=== PATIENT | female | born 1945 | race Caucasian/White ===

== ENCOUNTER 2023-01-01 10:15 | Outpatient (AMB) | payer MEDICARE, SELFPAY ==
--- NOTE | 2023-01-01 10:31 | HO.NEPHOV ---
HPI HPI Comments History of Present Illness Details I had the privilege of seeing Nelsy in follow-up. She has had history of recurrent UTI and has seen a urologist. She had undergone investigations which resulted in no further UTIs. She has the remote history for peripheral arterial disease. Her serum creatinine had gone up to 1.4 in the past when she was taking Bactrim which has resolved to her baseline now. Blood pressure has been at goal. She does not have any chest pain, shortness of breath, pedal edema, nausea, vomiting or diarrhea. She denies dizziness or orthostatic symptoms. She is not taking any nonsteroidal anti-inflammatory medications. There were no new active complaints at the time of this office visit. [facility] Medical History (Updated 01/01/23 @ 11:05 by Moy Tejada MD) Stomach cancer Other malignant neoplasm without specification of site Essential hypertension Surgical History (Updated 01/01/23 @ 10:37 by Serina Ervin MA) History of cholecystectomy H/O hernia repair Social History (Updated 01/01/23 @ 10:36 by Serina Ervin MA) Alcohol intake: current Alcohol type: wine Patient Tobacco Use Status: Never used Tobacco Vital Signs 01/01/23 10:32 Height 5 ft 4.5 in Weight 152 lb 2 oz BMI 25.7 BP 126/68 Blood Pressure Location Lt brachial Position Sitting Pulse 66 Pulse Source Pulse Oximeter Physical Exam Vital Signs: Last Vital Signs Pulse 66 01/01/23 10:32 BP 126/68 01/01/23 10:32 BMI result Body Mass Index 25.7 Const General: comfortable and no acute distress Orientation/consciousness: patient oriented x3 HEENT Head: Yes normocephalic Mouth: Normal oral and palatal mucosa present Eyes EOM: EOMs intact bilaterally Neck Neck: Yes supple Resp Auscultation: clear to auscultation bilaterally Cardio Jugular venous distension: no JVD Rate: regular rate Heart sounds: Murmur heart sound present GI Palpation (GI): Soft to palpation Auscultation: normal bowel sounds General: Yes no CVA tenderness Back/Spine/Pelvis Back: no CVA tenderness Skin General skin exam: no rashes or lesions noted Neuro General: patient oriented x3 and moves all extremities Extrem General: Yes no pedal edema Assessment & Plan Assessment & Plan (1) Essential hypertension: Code(s): I10 - Essential (primary) hypertension (2) CKD (chronic kidney disease) stage 3, GFR 30-59 ml/min: Code(s): N18.30 - Chronic kidney disease, stage 3 unspecified Qualifiers: Chronic kidney disease stage 3 subtype: stage 3a (GFR 45-59) Qualified Code(s): N18.31 - Chronic kidney disease, stage 3a Karen Whittington has some mild CKD most likely from vascular disease given her history of peripheral arterial disease and hypertension. Her serum creatinine had been stable and is close to baseline. Her blood pressure currently is at goal. She is on Atenolol, amlodipine as well as losartan. With time, I intend to optimize her blood pressure medications to avoid polypharmacy. She is on lipid-lowering agents. She should remain well hydrated. She should avoid nonsteroidal anti-inflammatory medications. She was encouraged to monitor her blood pressure at home. I have agreed to see her in follow-up for continued care. No medications were changed during this visit. All questions were answered. Time spent a retrieving data, documentation and patient counter 23 minutes. Orders: Orders Blood Urea Nitrogen 01/01/23 I10 - Essential (primary) hypertension, N18.30 - Chronic kidney disease, stage 3 unspecified Calcium 01/01/23 I10 - Essential (primary) hypertension, N18.30 - Chronic kidney disease, stage 3 unspecified UA w Microscopic 01/01/23 I10 - Essential (primary) hypertension, N18.30 - Chronic kidney disease, stage 3 unspecified Total Protein Urine Random 01/01/23 I10 - Essential (primary) hypertension, N18.30 - Chronic kidney disease, stage 3 unspecified Electrolytes 01/01/23 I10 - Essential (primary) hypertension, N18.30 - Chronic kidney disease, stage 3 unspecified Creatinine 01/01/23 I10 - Essential (primary) hypertension, N18.30 - Chronic kidney disease, stage 3 unspecified Coding Level of Care Code Est Pt Level 3 (00052) Diagnoses Essential hypertension I10 Stage 3a chronic kidney disease N18.31 Chronic kidney disease stage 3 subtype: stage 3a (GFR 45-59)
[2023-01-01 10:32] VITALS: BP 126/68; PULSE 66; BMI 25.7
== END 2023-01-01 11:10 | disposition home or self-care (01) ==
PROVIDERS: PCP Internal Medicine; Visit Provider Internal Medicine Nephrology
DX: I12.9 Hypertensive chronic kidney disease with stage 1 through stage 4 chronic kidney disease, or unspecified chronic kidney disease (principal); N18.31 Chronic kidney disease, stage 3a
CPT/HCPCS: 99213

== ENCOUNTER → 2023-01-01 10:15 | Outpatient (BNVA) | payer MEDICARE, SELFPAY | PROVIDERS: PCP Internal Medicine; Visit Provider Internal Medicine Nephrology | DX: I12.9 Hypertensive chronic kidney disease with stage 1 through stage 4 chronic kidney disease, or unspecified chronic kidney disease (principal); N18.31 Chronic kidney disease, stage 3a; I73.9 Peripheral vascular disease, unspecified; Z79.899 Other long term (current) drug therapy | CPT/HCPCS: 99212 ==

== ENCOUNTER 2023-04-05 11:01 | Outpatient (AMB) | payer MEDICARE, SELFPAY ==
--- NOTE | 2023-04-05 11:37 | HO.NEPHOV_ITS ---
HPI HPI Comments History of Present Illness Details I had the privilege of seeing Nelsy in follow-up. She has history of recurrent UTI and has seen a urologist. She had undergone investigations which resulted in no further UTIs. She has the remote history for peripheral arterial disease. Her serum creatinine had gone up to 1.4 in the past when she was taking Bactrim which has resolved to her baseline now. Her blood pressure has been at goal. She does not have any chest pain, shortness of breath, pedal edema, nausea, vomiting or diarrhea. She denies dizziness or orthostatic symptoms. She is not taking any nonsteroidal anti-inflammatory medications. There were no new active complaints at the time of this office visit. [facility] Medical History (Updated 01/01/23 @ 11:05 by Moy Tejada MD) Stomach cancer Other malignant neoplasm without specification of site Essential hypertension Surgical History History of cholecystectomy H/O hernia repair Social History Alcohol intake: current Alcohol type: wine Patient Tobacco Use Status: Never used Tobacco Vital Signs 04/05/23 11:38 Height 5 ft 4.5 in Weight 154 lb 6 oz BMI 26.1 BP 134/68 Blood Pressure Location Lt brachial Position Sitting Pulse 59 Pulse Source Pulse Oximeter Pulse Oximetry (%) 97 Oxygen Delivery Method Room Air Physical Exam Vital Signs: Last Vital Signs Pulse 59 04/05/23 11:38 BP 134/68 04/05/23 11:38 Pulse Ox 97 04/05/23 11:38 Oxygen Delivery Method Room Air 04/05/23 11:38 BMI result Body Mass Index 26.1 Const General: comfortable and no acute distress Orientation/consciousness: patient oriented x3 HEENT Head: Yes normocephalic Mouth: Normal oral and palatal mucosa present Eyes EOM: EOMs intact bilaterally Neck Neck: Yes supple Resp Auscultation: clear to auscultation bilaterally Cardio Jugular venous distension: no JVD Rate: regular rate GI Palpation (GI): Soft to palpation Auscultation: normal bowel sounds General: Yes no CVA tenderness Back/Spine/Pelvis Back: no CVA tenderness Skin General skin exam: no rashes or lesions noted Neuro General: patient oriented x3 and moves all extremities Extrem General: Yes no pedal edema Assessment & Plan Assessment & Plan (1) CKD (chronic kidney disease) stage 3, GFR 30-59 ml/min: Code(s): N18.30 - Chronic kidney disease, stage 3 unspecified Qualifiers: Chronic kidney disease stage 3 subtype: stage 3a (GFR 45-59) Qualified Code(s): N18.31 - Chronic kidney disease, stage 3a (2) Essential hypertension: Code(s): I10 - Essential (primary) hypertension Plan Nelsy has some mild CKD most likely from vascular disease given her history of peripheral arterial disease and hypertension. Her serum creatinine had been stable and is close to baseline. Her blood pressure currently is at goal. She is on Atenolol, amlodipine as well as losartan. With time, I intend to optimize her blood pressure medications to avoid polypharmacy. She is on lipid- lowering agents. She should remain well hydrated. She should avoid nonsteroidal anti-inflammatory medications. She was encouraged to monitor her blood pressure at home. I have agreed to see her in follow-up for continued care. No medications were changed during this visit. All questions were answered. Orders: Orders Creatinine Today I10 - Essential (primary) hypertension, N18.30 - Chronic kidney disease, stage 3 unspecified Electrolytes Today I10 - Essential (primary) hypertension, N18.30 - Chronic kidney disease, stage 3 unspecified Blood Urea Nitrogen Today I10 - Essential (primary) hypertension, N18.30 - Chronic kidney disease, stage 3 unspecified Coding Level of Care Code Est Pt Level 3 (40058) Diagnoses Stage 3a chronic kidney disease N18.31 Chronic kidney disease stage 3 subtype: stage 3a (GFR 45-59) Essential hypertension I10 Results Reviewed Nephrology Results: No Data to Display
[2023-04-05 11:38] VITALS: BP 134/68; PULSE 59; O2SAT 97; BMI 26.1
== END 2023-04-05 11:55 | disposition home or self-care (01) ==
LOC: HO.HKA 11:01
PROVIDERS: PCP Internal Medicine; Visit Provider Internal Medicine Nephrology
DX: N18.31 Chronic kidney disease, stage 3a (principal); I10 Essential (primary) hypertension
CPT/HCPCS: 99213

== ENCOUNTER → 2023-04-05 11:01 | Outpatient (BNVA) | payer MEDICARE, SELFPAY | PROVIDERS: PCP Internal Medicine; Visit Provider Internal Medicine Nephrology | DX: I12.9 Hypertensive chronic kidney disease with stage 1 through stage 4 chronic kidney disease, or unspecified chronic kidney disease (principal); N18.31 Chronic kidney disease, stage 3a | CPT/HCPCS: 99212 ==

== ENCOUNTER 2023-10-09 11:26 | Outpatient (AMB) | payer MEDICARE, SELFPAY ==
[2023-10-09 11:29] VITALS: BP 120/62; PULSE 84; O2SAT 97; BMI 25.7
--- NOTE | 2023-10-09 11:29 | HO.NEPHOV ---
Vital Signs 10/09/23 11:29 Height 5 ft 4.5 in Weight 152 lb BMI 25.7 BP 120/62 Blood Pressure Location Lt brachial Position Sitting Pulse 84 Pulse Source Pulse Oximeter Pulse Oximetry (%) 97 Oxygen Delivery Method Room Air Intake Visit Reasons: Aug follow up / Conf Manufacturing Sr Engineer Required: No Accompanied by: Self / Same As Patient Allergies adhesive tape Allergy (Verified 10/09/23 11:31) Unknown Penicillins Allergy (Verified 10/09/23 11:31) Unknown HPI Comments Details: I had the privilege of seeing Nelsy in follow-up. She has history of recurrent UTI and has seen a urologist. She had undergone investigations which resulted in no further UTIs. She has the remote history for peripheral arterial disease. Her serum creatinine had gone up to 1.4 in the past when she was taking Bactrim which has resolved to her baseline now. Her blood pressure has been at goal. She does not have any chest pain, shortness of breath, pedal edema, nausea, vomiting or diarrhea. She denies dizziness or orthostatic symptoms. She is not taking any nonsteroidal anti-inflammatory medications. There were no new active complaints at the time of this office visit. [facility] Medical History (Updated 01/01/23 @ 11:05 by Moy Tejada MD) Stomach cancer Other malignant neoplasm without specification of site Essential hypertension Surgical History History of cholecystectomy H/O hernia repair Social History Alcohol intake: current Alcohol type: wine Patient Tobacco Use Status: Never used Tobacco Review of Systems Const All systems reviewed & are unremarkable except as noted in HPI and below Physical Exam Vital Signs: Last Vital Signs Pulse 84 10/09/23 11:29 BP 120/62 10/09/23 11:29 Pulse Ox 97 10/09/23 11:29 Oxygen Delivery Method Room Air 10/09/23 11:29 BMI result Body Mass Index 25.7 Const General: comfortable and no acute distress Orientation/consciousness: patient oriented x3 HEENT Head: Yes normocephalic Mouth: Normal oral and palatal mucosa present Eyes EOM: EOMs intact bilaterally Neck Neck: Yes supple Resp Auscultation: clear to auscultation bilaterally Cardio Jugular venous distension: no JVD Rate: regular rate GI Palpation (GI): Soft to palpation Auscultation: normal bowel sounds General: Yes no CVA tenderness Back/Spine/Pelvis Back: no CVA tenderness Skin General skin exam: no rashes or lesions noted Neuro General: patient oriented x3 and moves all extremities Extrem General: Yes no pedal edema Results Reviewed Nephrology Results: No Data to Display Assessment & Plan Assessment & Plan (1) CKD (chronic kidney disease) stage 3, GFR 30-59 ml/min: Code(s): N18.30 - Chronic kidney disease, stage 3 unspecified Category: Medical Qualifiers: Chronic kidney disease stage 3 subtype: stage 3a (GFR 45-59) Qualified Code(s): N18.31 - Chronic kidney disease, stage 3a (2) Essential hypertension: Code(s): I10 - Essential (primary) hypertension Category: Medical Plan Nelsy has some mild CKD most likely from vascular disease given her history of peripheral arterial disease and hypertension. Her serum creatinine had been stable and is close to baseline. Her blood pressure currently is at goal. She is on Atenolol, amlodipine as well as losartan. With time, I intend to optimize her blood pressure medications to avoid polypharmacy. She is on lipid-lowering agents. She should remain well hydrated. She should avoid nonsteroidal anti-inflammatory medications. She was encouraged to monitor her blood pressure at home. I have agreed to see her in follow-up for continued care. No medications were changed during this visit. All questions were answered. Orders: Orders Creatinine Today I10 - Essential (primary) hypertension, N18.31 - Chronic kidney disease, stage 3a Electrolytes Today I10 - Essential (primary) hypertension, N18.31 - Chronic kidney disease, stage 3a Calcium Today I10 - Essential (primary) hypertension, N18.31 - Chronic kidney disease, stage 3a Blood Urea Nitrogen Today I10 - Essential (primary) hypertension, N18.31 - Chronic kidney disease, stage 3a Coding Level of Care Code Est Pt Level 4 (04113) Diagnoses Stage 3a chronic kidney disease N18.31 Chronic kidney disease stage 3 subtype: stage 3a (GFR 45-59) Essential hypertension I10
== END 2023-10-09 11:48 | disposition home or self-care (01) ==
PROVIDERS: PCP Internal Medicine; Visit Provider Internal Medicine Nephrology
DX: N18.31 Chronic kidney disease, stage 3a (principal); I10 Essential (primary) hypertension
CPT/HCPCS: 99214

== ENCOUNTER → 2023-10-09 11:26 | Outpatient (BNVA) | payer MEDICARE, SELFPAY | PROVIDERS: PCP Internal Medicine; Visit Provider Internal Medicine Nephrology | DX: I12.9 Hypertensive chronic kidney disease with stage 1 through stage 4 chronic kidney disease, or unspecified chronic kidney disease (principal); N18.31 Chronic kidney disease, stage 3a | CPT/HCPCS: 99212 ==

== ENCOUNTER 2024-04-08 10:54 | Outpatient (AMB) | payer MEDICARE, SELFPAY ==
--- NOTE | 2024-04-08 11:26 | HO.NEPHOV_ITS ---
Vital Signs 04/08/24 11:28 Height 5 ft 4.5 in Weight 147 lb 4 oz BMI 24.9 BP 122/62 Blood Pressure Location Lt brachial Position Sitting Pulse 69 Pulse Source Pulse Oximeter Pulse Oximetry (%) 99 Oxygen Delivery Method Room Air Intake Visit Reasons: 6 mon follow up/ Conf Patient Transition Specialist Required: No Accompanied by: Self / Same As Patient Allergies adhesive tape Allergy (Verified 04/08/24 11:27) Unknown Penicillins Allergy (Verified 04/08/24 11:27) Unknown HPI Comments Details: I had the privilege of seeing Nelsy in follow-up. She has history of recurrent UTI and has seen a urologist. She had undergone investigations which resulted in no further UTIs. She has the remote history for peripheral arterial disease. Her blood pressure has been at goal. She does not have any chest pain, shortness of breath, pedal edema, nausea, vomiting or diarrhea. She denies dizziness or orthostatic symptoms. She is not taking any nonsteroidal anti- inflammatory medications. There were no new active complaints at the time of this office visit. [facility] Medical History (Updated 01/01/23 @ 11:05 by Moy Tejada MD) Stomach cancer Other malignant neoplasm without specification of site Essential hypertension Surgical History History of cholecystectomy H/O hernia repair Social History Alcohol intake: current Alcohol type: wine Patient Tobacco Use Status: Never used Tobacco Review of Systems Const All systems reviewed & are unremarkable except as noted in HPI and below Physical Exam Vital Signs: Last Vital Signs Pulse 69 04/08/24 11:28 BP 122/62 04/08/24 11:28 Pulse Ox 99 04/08/24 11:28 Oxygen Delivery Method Room Air 04/08/24 11:28 BMI result Body Mass Index 24.9 Const General: comfortable and no acute distress Orientation/consciousness: patient oriented x3 HEENT Head: Yes normocephalic Mouth: Normal oral and palatal mucosa present Eyes EOM: EOMs intact bilaterally Neck Neck: Yes supple Resp Auscultation: clear to auscultation bilaterally Cardio Jugular venous distension: no JVD Rate: regular rate GI Palpation (GI): Soft to palpation Auscultation: normal bowel sounds General: Yes no CVA tenderness Back/Spine/Pelvis Back: no CVA tenderness Skin General skin exam: no rashes or lesions noted Neuro General: patient oriented x3 and moves all extremities Extrem General: Yes no pedal edema Results Reviewed Nephrology Results: No Data to Display Assessment & Plan Assessment & Plan (1) CKD (chronic kidney disease) stage 3, GFR 30-59 ml/min: Code(s): N18.30 - Chronic kidney disease, stage 3 unspecified Category: Medical Qualifiers: Chronic kidney disease stage 3 subtype: stage 3a (GFR 45-59) Qualified Code(s): N18.31 - Chronic kidney disease, stage 3a (2) Essential hypertension: Code(s): I10 - Essential (primary) hypertension Category: Medical Plan Nelsy has some mild CKD most likely from vascular disease given her history of peripheral arterial disease and hypertension. Her serum creatinine had been stable and is close to baseline. Her blood pressure currently is at goal. She is on Atenolol, amlodipine as well as losartan. She is on lipid-lowering agents. She should remain well hydrated. She should avoid nonsteroidal anti- inflammatory medications. She was encouraged to monitor her blood pressure at home. I have agreed to see her in follow-up for continued care. No medications were changed during this visit. All questions were answered. Orders: Orders Creatinine 6 Months I10 - Essential (primary) hypertension, N18.31 - Chronic kidney disease, stage 3a Blood Urea Nitrogen 6 Months I10 - Essential (primary) hypertension, N18.31 - Chronic kidney disease, stage 3a Electrolytes 6 Months I10 - Essential (primary) hypertension, N18.31 - Chronic kidney disease, stage 3a Coding Level of Care Code Est Pt Level 4 (14029) Diagnoses Stage 3a chronic kidney disease N18.31 Chronic kidney disease stage 3 subtype: stage 3a (GFR 45-59) Essential hypertension I10
[2024-04-08 11:28] VITALS: BP 122/62; PULSE 69; O2SAT 99; BMI 24.9
--- OUTSIDE RECORDS SUMMARY | 2024-04-08 12:14 | XMS_ITS | Clinical Summary ---
Author Organization [facility] Address [address] [place] [address] Phone Care Team Providers Care Gas Welding Equipment Mechanic Name Role Phone Jones Alamo MD Primary Care Provider Allergies Active Allergy Reactions Criticality Noted Date Comments Adhesive Tape Other (see comments) 12/07/2021 Penicillins Other (see comments) 03/22/2018 Medications atenolol (TENORMIN) 25 MG tablet Take 25 mg by mouth 1 (one) time each day Active clonazePAM (KlonoPIN) 0.5 MG tablet Take 0.5 mg by mouth 2 (two) times a day if needed Active levothyroxine (SYNTHROID, LEVOTHROID) 88 MCG tablet Take 88 mcg by mouth 1 (one) time each day Active clopidogrel (PLAVIX) 75 MG tablet Take 1 tablet by mouth 1 (one) time each day 12/10/2021 Active amLODIPine (NORVASC) 5 MG tablet Take 5 mg by mouth 1 (one) time each day 11/07/2021 Active pravastatin (PRAVACHOL) 20 MG tablet Take 20 mg by mouth 1 (one) time each day 04/14/2022 Active losartan (COZAAR) 25 MG tablet Take 25 mg by mouth 1 (one) time each day 06/05/2022 Active Active Problems Problem Noted Date Diagnosed Date Coronary arteriosclerosis 12/07/2021 Overview (12/22/2021): Last Assessment & Plan: If the patient required a cholecystectomy her cardiac status is stable enough to be able to undergo the procedure with a risk of less than 1% of a perioperative cardiac event based on the Santana and the geriatric sensitive risk factor scale Chest pain 12/02/2021 Overview (12/22/2021): Last Assessment & Plan: Patient has evidence of calcification of the coronary arteries but a submaximal stress test showed no ischemia. She is capable of performing 4 METS of exercise without difficulty and her stress test was submaximal which may limit the finding of underlying ischemic disease the decreases that sensitivity I think if she continues no chest discomfort repeat the stress test using a pharmacologic approach but she put in a good effort and at maximal effort there is no evidence for ischemia so she can be safely managed with medical therapy and risk factor modification.Other risk factor modification no further intervention necessary at this time. Polyp of colon 03/11/2019 History of malignant neoplasm of stomach 019 Overview (06/24/2021): 1993 Partial Gastrectomy, chemo/RT Hyperlipidemia 09/02/2018 Hypertension 09/02/2018 Type 2 diabetes mellitus 09/02/2018 Peripheral vascular disease 04/07/2018 Immunizations Name Administration Dates Next Due Moderna SARS-COV-2 01/11/2021,07/10/2020, 021 Family History Medical History Relation Comments Heart failure Father Diabetes Mother Heart failure Mother Relation Status Comments Father Mother Social History Tobacco Use Types Packs/Day Years Used Date Smoking Tobacco: Former Cigarettes Smokeless Tobacco: Never Tobacco Cessation:Counseling Given: Not Answered Alcohol Use Standard Drinks/Week Comments Yes 0 (1 standard drink = 0.6 oz pur e alcohol) 1-2 glasses of wine a day Comments Unknown Sex and Gender Information Value Date Recorded Sex Assigned at Female 07/02/2021 11:01 AM EDT Legal Sex Female 2:14 PM EST Gender Identity Female 07/02/2021 11:01 AM EDT Sexual Orientation Straight 07/02/2021 11 :01 AM EDT Last Filed Vital Signs Vital Sign Reading Time Taken Comments Blood Pressure 120/70 06/22/2022 4:02 PM EDT Pulse 76 06/22/2022 3:32 PM EDT Temperature - - Respiratory Rate - - Oxygen Saturation 98% 06/27/2021 3:45 PM EDT Inhaled Oxygen Concentration - - Weight 67.1 kg (148 lb) 06/22/2022 3:32 PM EDT Height - - Body Mass Index - - Plan of Treatment Health Maintenance Due Date Last Done Comments Pneumococcal Vaccine: 65+ Ye ars (1 of 2 - PCV) 1951 Diabetes: Ophthalmology Exam 04/14/2021 Diabetes: Pedal Pulse Checked 04/14/2021 Diabetes: Sensory Foot Exam 04/14/2021 Diabetes: Visual Foot Exam 04/14/2021 Diabetes: Hemoglobin A1C 08/30/2021 05/31/2021 Influenza Vaccine (#1) 2023 Hepatitis B Vaccine Aged Out No longe r eligible based on patient's age to complete this topic Procedures Procedure Name Priority Date/Time Associated Diagnosis Comments EXT RESULT ENTRY Routine 05/31/2021 from Last 3 Months or Most Recently Relevant to Health Maintenance Results * (ABNORMAL) EXT RESULT ENTRY (05/31/2021) WBC 6.2 3.3 - 10.0 10*3/ML Red Blood Cell Count 3.81 Hemoglobin 11.9(A) 12.0 - 16.0 Hematocrit 37.7 36.0 - 46.0 Platelets 169 150 - 399 10*3/UL MCV 99.0 82.0 - 108.0 Sodium 138 137 - 147 Potassium 4.7 3.4 - 5.5 Chloride 103.0 99.0 - 108.0 Bicarbonate (CO2) 25 22 - 30 mmol/L Anion Gap 10 <=30 MMOL/L BUN 22(A) 4 - 21 mg/dL Creatinine 1.00 0.50 - 1.10 mg/dL Calcium 9.8 8.7 - 10.7 mg/dL eGFR Non-Afr [place] 52 Hemoglobin A1C 6.3(A) 4.0 - 6.0 05/31/2021 us Historical Provider LAB BLOOD ORDERABLES Marlyn l Result from Last 3 Months or Most Recently Relevant to Health Maintenance Insurance MEDICARE MEDICARE Care Teams Gas Welding Equipment Mechanic Relationship Specialty Start Date End Date Jones Alamo MD [address] [place] [address] PCP - General Internal Medicine 04/14/21
--- OUTSIDE RECORDS SUMMARY | 2024-04-08 12:15 | XMS_ITS | Encounter Summary ---
Author Organization [facility] Address [address] [facility] [facility] [address] [place] [address] Phone Care Team Providers Care Resawyer Name Role Phone Jones Alamo MD Primary Care Provider + [phone] Encounter Details Date Type Department Care Team (Late st Contact Info) Description 08/16/2022 Office Communication [facility] [address] [facility] [address] [place] [phone] Jeffery Etelvina [address] [place] [phone] Social History Tobacco Use Types Packs/Day Years Used Date Smoking Tobacco: Former Cigarettes Smokeless Tobacco: Never Alcohol Use Standard Drinks/Week Comments Yes 0 (1 standard drink = 0.6 oz pur e alcohol) 1-2 glasses of wine a day Comments Unknown Sex and Gender Information Value Date Recorded Sex Assigned at Female 07/02/2021 11:01 AM EDT Legal Sex Female 2:14 PM EST Gender Identity Female 07/02/2021 11:01 AM EDT Sexual Orientation Straight 07/02/2021 11 :01 AM EDT documented as of this encounter Miscellaneous Notes * Telephone Encounter - Etelvina Gil - 08/16/2022 12:57 PM EDT PT called to say that she had procedures done at [facility]. She asked that office to fax notes here so that Dr Tejada can see. Just a heads up. documented in this encounter Plan of Treatment Not on file documented as of this encounter Visit Diagnoses Not on filedocumented in this encounter Care Teams Resawyer Relationship Specialty Start Date End Date Jones Alamo MD [address] [place] [address] PCP - General Internal Medicine 04/14/21 documented as of this encounter
== END 2024-04-08 11:54 | disposition home or self-care (01) ==
PROVIDERS: PCP Internal Medicine; Visit Provider Internal Medicine Nephrology
DX: N18.31 Chronic kidney disease, stage 3a (principal); I10 Essential (primary) hypertension
CPT/HCPCS: 99214

== ENCOUNTER → 2024-04-08 10:54 | Outpatient (BNVA) | payer MEDICARE, SELFPAY | PROVIDERS: PCP Internal Medicine; Visit Provider Internal Medicine Nephrology | DX: I12.9 Hypertensive chronic kidney disease with stage 1 through stage 4 chronic kidney disease, or unspecified chronic kidney disease (principal); N18.31 Chronic kidney disease, stage 3a | CPT/HCPCS: 99212 ==

== ENCOUNTER 2024-10-28 14:46 | Outpatient (AMB) | payer MEDICARE, SELFPAY ==
--- NOTE | 2024-10-28 14:49 | HO.NEPHOV_ITS ---
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 She has history of recurrent UTI and has seen a urologist. She had undergone investigations which resulted in no further UTIs. She has the remote history for peripheral arterial disease. Her blood pressure has been at goal. She does not have any chest pain, shortness of breath, pedal edema, nausea, vomiting or diarrhea. She denies dizziness or orthostatic symptoms. She is not taking any nonsteroidal anti- inflammatory medications. There were no new active complaints at the time of this office visit. [facility] Medical History (Updated 01/01/23 @ 11:05 by Moy Tejada MD) Stomach cancer Other malignant neoplasm without specification of site Essential hypertension Surgical History History of cholecystectomy H/O hernia repair Social History Alcohol intake: current Alcohol type: wine Patient Tobacco Use Status: Never used Tobacco Review of Systems Const All systems reviewed & are unremarkable except as noted in HPI and below Physical Exam Vital Signs: Last Vital Signs Pulse 70 10/28/24 14:52 BP 128/60 10/28/24 14:52 Pulse Ox 99 10/28/24 14:52 Oxygen Delivery Method Room Air 10/28/24 14:52 BMI result Body Mass Index 23.0 Const General: comfortable and no acute distress Orientation/consciousness: patient oriented x3 HEENT Head: Yes normocephalic Mouth: Normal oral and palatal mucosa present Eyes EOM: EOMs intact bilaterally Neck Neck: Yes supple Resp Auscultation: clear to auscultation bilaterally Cardio Jugular venous distension: no JVD Rate: regular rate GI Palpation (GI): Soft to palpation Auscultation: normal bowel sounds General: Yes no CVA tenderness Back/Spine/Pelvis Back: no CVA tenderness Skin General skin exam: no rashes or lesions noted Neuro General: patient oriented x3 and moves all extremities Extrem General: Yes no pedal edema Assessment & Plan Assessment & Plan (1) CKD (chronic kidney disease) stage 3, GFR 30-59 ml/min: Code(s): N18.30 - Chronic kidney disease, stage 3 unspecified Category: Medical Qualifiers: Chronic kidney disease stage 3 subtype: stage 3a (GFR 45-59) Qualified Code(s): N18.31 - Chronic kidney disease, stage 3a (2) Essential hypertension: Code(s): I10 - Essential (primary) hypertension Category: Medical Plan Nelsy has some mild CKD most likely from vascular disease given her history of peripheral arterial disease and hypertension. Her serum creatinine had been stable and is close to baseline. Her blood pressure currently is at goal. She is on Atenolol, amlodipine as well as losartan. She is on lipid-lowering agents. She should remain well hydrated. She should avoid nonsteroidal anti- inflammatory medications. She was encouraged to monitor her blood pressure at home. No medications were changed during this visit. F/U given Orders: Orders Blood Urea Nitrogen 7 Months I10 - Essential (primary) hypertension, N18.31 - Chronic kidney disease, stage 3a Creatinine 7 Months I10 - Essential (primary) hypertension, N18.31 - Chronic kidney disease, stage 3a Protein Creatinine Ratio, Ur 7 Months I10 - Essential (primary) hypertension, N18.31 - Chronic kidney disease, stage 3a Electrolytes 7 Months I10 - Essential (primary) hypertension, N18.31 - Chronic kidney disease, stage 3a Coding Level of Care Code Est Pt Level 4 (77458) Diagnoses Stage 3a chronic kidney disease N18.31 Chronic kidney disease stage 3 subtype: stage 3a (GFR 45-59) Essential hypertension I10
[2024-10-28 14:52] VITALS: BP 128/60; PULSE 70; O2SAT 99; BMI 23.0
--- OUTSIDE RECORDS SUMMARY | 2024-10-28 15:59 | XMS_ITS | Clinical Summary ---
Author Organization [facility] Address [address] [place] [address] Phone Care Team Providers Care Efficiency Manager Name Role Phone Jones Alamo MD Primary [...] mellitus 09/02/2018 Peripheral vascular disease 04/07/2018 Immunizations Immunization Administration Dates Next Due Moderna SARS-COV-2 01/11/2021,07/10/2020, [...] Due Date Last Done Comments Pneumococcal Vaccine: 50+ Ye ars (1 of 2 - PCV) 1963 Diabetes: Ophthalmology Exam 04/14/2021 Diabetes: Pedal Pulse Checked 04/14/2021 Diabetes: Sensory Foot Exam 04/14/2021 Diabetes: Visual Foot Exam 04/14/2021 Diabetes: Hemoglobin A1C 08/30/2021 05/31/2021 Influenza Vaccine (#1) 2024 Hepatitis B Vaccine Aged Out No longe [...] 9.8 8.7 - 10.7 mg/dL eGFR Non-Afr Libyan 52 Hemoglobin A1C 6.3(A) 4.0 - 6.0 05/31/2021 us Historical Provider LAB BLOOD ORDERABLES Marlyn l Result from Last 3 Months or Most Recently Relevant to Health Maintenance Insurance Medicare Medicare Care Teams Efficiency Manager Relationship Specialty Start Date End Date Jones Alamo MD [address] [place] [address] PCP - General Internal Medicine 04/14/21
--- OUTSIDE RECORDS SUMMARY | 2024-10-28 15:59 | XMS_ITS | Clinical Summary ---
Author Organization [facility] Address [address] [place] [address] Phone Care Team Providers Care Research And Development Director Name Role Phone Jones Alamo MD Primary Care Provider [phone] Encounters Date Type Department Care Team Description 08/26/2024 8:53 AM EDT - 08/26/2024 11:59 PM EDT Hospital Encounter [facility] MRI [address] [place] [address] Pancreatic cyst Discharge Disposition: Home or Self Care from Last 3 Months Surgical History Surgery Date Site/Laterality Comments OTHER SURGICAL HISTORY 09/05/2017 Right PROCEDURE: [place] REVSC OPN/PRG FEM/POP W/ANGIOPLASTY UNI; COMMENT: and r common iliac artery OTHER SURGICAL HISTORY 1992 PROCEDURE: [place] GSTRCT PRTL DSTL W/GASTRODUODENOSTOMY; COMMENT: Partial Gastrectomy d/t Gastric Cancer OTHER SURGICAL HISTORY Left PROCEDURE: WA ENDOVEN ABLTJ INCMPTNT VEIN XTR LASER 1ST VEIN; COMMENT: Varicose Vein Laser Surgery. Dr Olson COLONOSCOPY PROCEDURE: HISTORICAL COLONOSCOPY HERNIA REPAIR 01/2019 Right PROCEDURE: HISTORICAL HERNIA REPAIR/ING Medical History Medical History Date Comments Colon polyps 03/11/2019 DX:Colon polyps DM (diabetes mellitus), type 2 with peripheral vascular complications (CMS/HCC V24, CMS/HCC V28) 09/02/2018 DX:DM (diabetes mellitus), type 2 with peripheral vascular complications (HCC) History of gastric cancer 09/02/2018 DX:His tory of gastric cancer; COMMENT: 1993 Partial Gastrectomy, chemo/RT Hyperlipidemia 09/02/2018 DX:Hyperlipidemi a Hypertension 09/02/2018 DX:Hypertension PAD (peripheral artery disea se) (CMS/HCC V24) 04/07/2018 DX:PAD (peripheral artery di sease) ([facility]) Family History Medical History Relation Name Comments Alcohol abuse Brother age 37 Other: heart attack Father age 67 Heart failure Mother [place], age 9 1 Relation Name Status Comments Brother Father Mother Social History Tobacco Use Types Packs/Day Years Used Date Smoking Tobacco: Former Cigarettes Q uit: 02/27/1992 Smokeless Tobacco: Never Alcohol Use Standard Drinks/Week Comments Yes 0 (1 standard drink = 0.6 oz pur e alcohol) Comments Unknown Sex and Gender Information Value Date Recorded Sex Assigned at Not on file Legal Sex Female 1:51 AM EST Gender Identity Not on file Sexual Orientation Not on file Obstetrics History Last Filed Vital Signs Vital Sign Reading Time Taken Comments Blood Pressure 112/70 12/07/2021 10:17 AM EDT Sitting R Arm Pulse 72 12/07/2021 10:17 AM EDT Temperature - - Respiratory Rate - - Oxygen Saturation - - Inhaled Oxygen Concentration - - Weight 68.1 kg (150 lb 1.6 oz) 12/07/2021 10:17 AM EDT Height 162.6 cm (5' 4 ) 12/07/2021 10:1 7 AM EDT Body Mass Index 25.76 12/07/2021 10:17 AM EDT Plan of Treatment Health Maintenance Due Date Last Done Comments Diabetes: Annual GFR (Glomerular Filtration Rate) 1944 Diabetes: Annual Foot Exam 1954 Diabetes: Annual Retina Eye Exam 1954 DTaP,Tdap,and Td Vaccines (1 - Tdap) 1963 Pneumococcal Vaccine: 50+ Years (1 of 1 - PCV) 1994 RSV Immunization Adult Patients (1 - 1-dose 75+ series) 2019 Zoster Vaccines (2 of 2) 12/16/2019 10/21/2019 Cholesterol Screening (Lipid Panel) 01/29/2022 Falls Risk Assessment 01/29/2022 Medicare Annual Wellness Visit 01/29/2022 Osteoporosis Screening (Bone Density Screening) 01/29/2022 Social Influencers of Health Screening 01/29/2022 Hypertension/CHF/CAD Annual BMP Blood Test 02/05/2022 Diabetes: Annual Urine Albumin-Creatinine Ratio (uACR) 02/08/2022 Diabetes: Blood Sugar Control Test (HGBA1C) 02/08/2022 Depression Screening 02/27/2024 COVID-19 Vaccine ( season) 2024 01/14/2024, 01/11/2021, 07/10/2020, Additional history exists Influenza Vaccine (#1) 2024 , 11/22/2022, 11/23/2021, Additional history exists HIB Vaccines Aged Out No longer eligi ble based on patient's age to complete this topic HPV Vaccines Aged Out No longer eligi ble based on patient's age to complete this topic Hepatitis A Vaccines Aged Out No long er eligible based on patient's age to complete this topic Hepatitis B Vaccines Aged Out No long er eligible based on patient's age to complete this topic IPV Vaccines Aged Out No longer eligi ble based on patient's age to complete this topic MMR Vaccines Aged Out No longer eligi ble based on patient's age to complete this topic Meningococcal ACWY Vaccine Aged Out N o longer eligible based on patient's age to complete this topic Meningococcal B Vaccine Aged Out No l onger eligible based on patient's age to complete this topic RSV Immunization Patients Under 20 months Aged Out No longer eligible based on patient's age to complete this topic Varicella Vaccines Aged Out No longer eligible based on patient's age to complete this topic Procedures Procedure Name Priority Date/Time Associated Diagnosis Comments MR ABDOMEN WO AND W CONTRAST Routine 08/26/2024 11:07 AM EDT Pancreatic cyst from Last 3 Months Results * MR Abdomen wo and w Contrast (08/26/2024 11:07 AM EDT) Anatomical Region Laterality Modality Body Magnetic Resonan ce 08/26/2024 12:0 0 PM EDT Impressions 08/26/2024 12:45 PM EDT Stable pancreatic cystic lesions dating back to 2022. Continued MRI follow-up is recommended in 2 years to ensure stability. Unchanged atrophic left hepatic lobe and atrophic right kidney. A copy of this report will be provided to the [facility]. -------- FINAL REPORT -------- Dictated By: TORIN BABCOCK Dictated Date: 08/26/2024 12:00 ET Assigned Physician: TORIN BABCOCK Reviewed and Electronically Signed By: TORIN BABCOCK Signed Date: 08/26/2024 12:45 ET Workstation ID: [id number] Transcribed By: Self Edit Transcribed Date: 08/26/2024 12:17 ET Narrative 08/26/2024 12:45 PM EDT PROCEDURE: Abdominal MRI INDICATION: Pancreatic cyst TECHNIQUE: Multiplanar, multisequence MRI of the abdomen without and with contrast. 13 mL Dotarem injected intravenously without complication from a 15 mL vial with the remainder discarded COMPARISON: 11/30/2022 FINDINGS: Mild hepatic steatosis. Atrophic left liver with left intrahepatic ductal dilatation, similar compared to prior. No liver mass or abnormal enhancement. Cholecystectomy. No choledocholithiasis. Bile ducts are unchanged. No change in scattered pancreatic cystic lesions measuring up to 11 mm at the pancreatic body atrophy of the pancreatic head and neck is unchanged. No solid pancreatic mass or ductal dilatation. 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 Main and right intrahepatic portal veins are patent. Atherosclerotic irregularity of the abdominal aorta is unchanged. No abdominal aortic aneurysm. No retroperitoneal or mesenteric lymphadenopathy. Spleen and adrenal glands are normal. Atrophic right kidney is unchanged. No solid renal mass or hydronephrosis. Atrophy at the left upper pole of the kidney is unchanged. Visualized portions of the bowel are notable for colonic diverticulosis. No obstruction or wall thickening. No ascites or fluid collection. Visualized intrathoracic structures in superficial soft tissues are normal. No marrow replacing lesions seen throughout the bones. Procedure Note Torin Babcock MD - 08/26/2024 PROCEDURE: Abdominal MRI INDICATION: Pancreatic cyst TECHNIQUE: Multiplanar, multisequence MRI of the abdomen without and withcontrast. 13 mL Dotarem injected intravenously without complication froma 15 mL vial with the remainder discarded COMPARISON: 11/30/2022 FINDINGS: Mild hepatic steatosis. Atrophic left liver with left intrahepatic ductaldilatation, similar compared to prior. No liver mass or abnormalenhancement. Cholecystectomy. No choledocholithiasis. Bile ducts are unchanged. No change in scattered pancreatic cystic lesions measuring up to 11 mm atthe pancreatic body atrophy of the pancreatic head and neck is unchanged.No solid pancreatic mass or ductal dilatation. 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 Mainand right intrahepatic portal veins are patent. Atheroscleroticirregularity of the abdominal aorta is unchanged. No abdominal aorticaneurysm. No retroperitoneal or mesenteric lymphadenopathy. Spleen and adrenal glands are normal. Atrophic right kidney is unchanged. No solid renal mass orhydronephrosis. Atrophy at the left upper pole of the kidney isunchanged. Visualized portions of the bowel are notable for colonic diverticulosis.No obstruction or wall thickening. No ascites or fluid collection. Visualized intrathoracic structures in superficial soft tissues arenormal. No marrow replacing lesions seen throughout the bones. IMPRESSION: Stable pancreatic cystic lesions dating back to 2022. Continued MRIfollow-up is recommended in 2 years to ensure stability. Unchanged atrophic left hepatic lobe and atrophic right kidney. A copy of this report [facility]. -------- FINAL REPORT -------- Dictated By: TORIN BABCOCK Dictated Date: 08/26/2024 12:00 ET Assigned Physician: TORIN BABCOCK Reviewed and Electronically Signed By: TORIN BABCOCK Signed Date: 08/26/2024 12:45 ET Workstation ID: [id number] Transcribed By: Self Edit Transcribed Date: 08/26/2024 12:17 ET Jones Alamo MD IMG MRI PROCEDURES Final Res ult from Last 3 Months Insurance [employer] MEDICARE Care Teams Research And Development Director Relationship Specialty Start Date End Date Jones Alamo MD PCP - General Internal Medicine 01/22/17
== END 2024-10-28 15:17 | disposition home or self-care (01) ==
LOC: HO.HKAS 14:47
PROVIDERS: PCP Internal Medicine; Visit Provider Internal Medicine Nephrology
DX: N18.31 Chronic kidney disease, stage 3a (principal); I10 Essential (primary) hypertension
CPT/HCPCS: 99214

== ENCOUNTER → 2024-10-28 14:46 | Outpatient (BNVA) | payer MEDICARE, SELFPAY | PROVIDERS: PCP Internal Medicine; Visit Provider Internal Medicine Nephrology | DX: I12.9 Hypertensive chronic kidney disease with stage 1 through stage 4 chronic kidney disease, or unspecified chronic kidney disease (principal); N18.31 Chronic kidney disease, stage 3a | CPT/HCPCS: 99212 ==